=== PATIENT | female | born 1990 | race African-American/Black ===

== ENCOUNTER 2022-10-29 19:38 | Emergency (ER) | payer OTHER ==
[~2022-10-29] VITALS: Ht 165.1 cm; Wt 95.3 kg
== END 2022-10-30 01:55 | disposition left against medical advice (07) ==
LOC: ER 19:38
PROVIDERS: Nurse Practitioner Family
DX: O20.9 Hemorrhage in early pregnancy, unspecified (principal); O26.891 Other specified pregnancy related conditions, first trimester; Z3A.08 8 weeks gestation of pregnancy; R10.2 Pelvic and perineal pain; Z91.013 Allergy to seafood

== ENCOUNTER 2022-11-27 14:27 | Emergency (ER) | payer OTHER ==
[~2022-11-27] VITALS: Ht 165.1 cm; Wt 90.7 kg
[2022-11-27] MEDS ORDERED: NAPROXEN500 MG PO ×2 (20:11→20:13)
[2022-11-27] MEDS ORDERED: DUI500 PO (20:13)
== END 2022-11-27 20:30 | disposition home or self-care (01) ==
LOC: ER 14:28
PROVIDERS: Nurse Practitioner Family
DX: R10.2 Pelvic and perineal pain (principal); Z20.822 Contact with and (suspected) exposure to COVID-19; Z91.013 Allergy to seafood